=== PATIENT | female | born 1990 | race Caucasian/White ===

== ENCOUNTER 2021-03-22 12:27 | Emergency (ER) | payer MEDICAID ==
[~2021-03-22] VITALS: Ht 162.6 cm; Wt 63.5 kg
[2021-03-22 12:40] VITALS: BP_SYST 116
[2021-03-22 14:21] VITALS: BP_SYST 103
== END 2021-03-22 14:22 | disposition home or self-care (01) ==
LOC: SED 12:27
DX: R07.89 Other chest pain (principal)
CPT/HCPCS: 93005; 99283

== ENCOUNTER 2021-06-30 23:32 | Emergency (ER) | payer MEDICAID ==
[~2021-06-30] VITALS: Ht 162.6 cm; Wt 63.5 kg
[2021-07-01 00:05] VITALS: BP_SYST 161
--- NOTE | 2021-07-01 00:47 | NUR ---
Patient ambulatory to bed 7 for evaluation
--- NOTE | 2021-07-01 01:02 | NUR ---
Patient BIB by family from home. C/O headache x today. Patient reported, had headache today ~ 3 hours [employer], denied injury , trauma or surgery. A/O,X4, nausea, left side head pain, pain rate 7-8/10,
--- NOTE | 2021-07-01 01:21 | NUR ---
ER Dr. Bae at bedside examining patient.
[2021-07-01] MEDS ORDERED: MORPHINE 4 MG INJ. 4 MG/ML VIAL IVP ONE (01:30)
[2021-07-01] MEDS ORDERED: PROMETHAZINE INJ.Non-Formulary 25 MG/ML AMP IVP ONE (01:30)
[2021-07-01] MEDS ORDERED: DEXAMETHASONE SOD PHOSPHATE 10 MG/ML VIAL IVP ONE (01:30)
[2021-07-01] MEDS ORDERED: NACL 0.9% 1,000 ML IV ONE (01:30)
[2021-07-01] MEDS ORDERED: PROCHLORPERAZINE EDISYLATE 10 MG/2 ML VIAL ONE (01:54)
[2021-07-01] MEDS ORDERED: PROCHLORPERAZINE EDISYLATE 10 MG/2 ML VIAL IVP ONE (02:00)
--- NOTE | 2021-07-01 02:26 | NUR ---
Patient pain relief- pain rate 2
--- NOTE | 2021-07-01 03:26 | NUR ---
Returned from radiology, back to [facility].
--- NOTE | 2021-07-01 03:57 | NUR ---
Patient resting quietly. No acute distress noted. Vital signs within normal range.
[2021-07-01] MEDS ORDERED: PHE25 PO (04:47)
[2021-07-01] MEDS ORDERED: NAPR-686 PO (04:47)
[2021-07-01 04:52] VITALS: BP_SYST 108
--- NOTE | 2021-07-01 04:52 | NUR ---
Patient given written and verbal discharge instructions and verbalizes understanding. ER MD discussed with patient the results and treatment provided. Patient in stable condition. ID arm band removed. IV catheter removed intact and dressing applied, no active bleeding. Rx of Naproxen, Phenergan given. Patient educated on pain management and to follow up with PMD. Pain Scale 0/10. Opportunity for questions provided and answered. Medication side effect fact sheet provided.
== END 2021-07-01 04:52 | disposition home or self-care (01) ==
LOC: SED 23:32
DX: G43.909 Migraine, unspecified, not intractable, without status migrainosus (principal); Z20.822 Contact with and (suspected) exposure to COVID-19
CPT/HCPCS: 36415; 70450; 76376; 81025; 87426; 96361; 96374; 96375; 99285; J0780; J1100; J2270; J7030; J2550

== ENCOUNTER 2022-04-28 20:32 | Emergency (ER) | payer MEDICAID ==
[~2022-04-28] VITALS: Ht 162.6 cm; Wt 63.5 kg
[~2022-04-28 20:32] MED LIST: NAPR-686 PO; PHE25 PO
[2022-04-28 21:29] VITALS: BP_SYST 112
--- NOTE | 2022-04-28 21:35 | NUR ---
PT FROM HOME WITH C/O BURING WITH URINATION AND FREQUENCY. PAIN 03/05. DENIES N/V. PT AMBULATORY AND FOLLOWING COMMANDS.
--- NOTE | 2022-04-28 21:36 | NUR ---
PT PLACED IN LOBBY.
--- NOTE | 2022-04-28 21:42 | NUR ---
WITH PATIENT IN TRIAGE ROOM.
[2022-04-28] MEDS ORDERED: NITR-85 PO ×3 (21:47→23:08)
[2022-04-28] MEDS ORDERED: PHEN-726 PO ×3 (21:47→23:08)
[2022-04-28 22:34] VITALS: BP_SYST 128
--- NOTE | 2022-04-28 22:34 | NUR ---
Patient given written and verbal discharge instructions and verbalizes understanding. ER MD discussed with patient the results and treatment provided. Patient in stable condition. ID arm band removed. Rx of Macrobid and Pyridium given. Patient educated on pain management and to follow up with PMD. Pain Scale 0/10. Opportunity for questions provided and answered. Medication side effect fact sheet provided.
== END 2022-04-28 22:34 | disposition home or self-care (01) ==
LOC: SED 20:32
DX: N39.0 Urinary tract infection, site not specified (principal); R35.0 Frequency of micturition; R30.0 Dysuria; Z79.899 Other long term (current) drug therapy
CPT/HCPCS: 81025; 99283

== ENCOUNTER 2024-03-01 22:43 | Emergency (ER) | payer MEDICAID ==
[~2024-03-01] VITALS: Ht 162.6 cm; Wt 63.5 kg
[~2024-03-01 22:43] MED LIST changes: +NITR-85 PO; +PHEN-726 PO
[2024-03-01 22:55] VITALS: BP_SYST 141; PULSE 91; RESP 20; TEMP 97.6; O2SAT 98
[2024-03-01 23:20] VITALS: BP_SYST 118; PULSE 88; RESP 18; TEMP 98.1; O2SAT 98
[2024-03-01] MEDS: KETOROLAC TROMETHAMINE 60 MG/2 ML VIAL IM ONE (23:21)
[2024-03-01 23:31] LABS: BILIRUBIN,URINE NEGATIVE (NEGATIVE); CLARITY/URINE CLEAR (CLEAR); COLOR,URINE YELLOW (YELLOW); GLUCOSE,URINE NEGATIVE (NEGATIVE); KETONES,URINE TRACE (NEGATIVE); LEUKOCYTE ESTERASE ,URINE NEGATIVE (NEGATIVE); NITRITE, URINE NEGATIVE (NEGATIVE); PROTEIN URINE NEGATIVE (NEGATIVE); UROBILINOGEN,URINE 0.2 (0.2-1.0)
[2024-03-01 23:40] LABS: BLOOD, URINE TRACE (NEGATIVE)
[2024-03-01 23:41] LABS: BACTERIA,URINE RARE /HPF (None Seen); RBC,URINE 0-3 /HPF (0-3); WBC,URINE 0-3 /HPF (0-3)
[2024-03-01] MEDS ORDERED: NAPR-1172 PO (23:57)
== END 2024-03-02 00:09 | disposition home or self-care (01) ==
LOC: SED 22:43
DX: G44.209 Tension-type headache, unspecified, not intractable (principal); M79.671 Pain in right foot; E78.5 Hyperlipidemia, unspecified; Z79.899 Other long term (current) drug therapy; Z79.2 Long term (current) use of antibiotics
CPT/HCPCS: 99283; 81001; 96372; J1885; 81000; 81015

== ENCOUNTER 2024-06-25 15:07 | Emergency (ER) | payer MEDICAID ==
[~2024-06-25] VITALS: Ht 162.6 cm; Wt 63.5 kg
[~2024-06-25 15:07] MED LIST changes: +NAPR-1172 PO
[2024-06-25 15:20] VITALS: BP_SYST 121; PULSE 114; RESP 18; TEMP 98.2; O2SAT 100
[2024-06-25] MEDS: ONDANSETRON 4 MG ODT TAB PO ONE (16:11)
[2024-06-25 16:27] LABS: BASOPHILS % (AUTO) 0.4 % (0.0-2.0); EOSINOPHILS % (AUTO) 0.1 % (0.0-4.0); HEMATOCRIT 39.9 % (36-48); HEMOGLOBIN 13.7 g/dL (12.0-16.0); LYMPHOCYTES # (AUTO) 1.6 K/uL (1.0-5.5); LYMPHOCYTES % (AUTO) 18.9 % (20.5-51.5); MEAN CORPUSCULAR HEMOGLOBIN 31 pg (27-31); MEAN CORPUSCULAR HGB CONC 34 % (32-36); MEAN CORPUSCULAR VOLUME 90 fL (79.0-98.0); MONOCYTES # (AUTO) 0.4 K/uL (0.0-1.0); MONOCYTES % (AUTO) 4.7 % (1.7-9.3); NEUTROPHILS # (AUTO) 6.2 K/uL (1.8-7.7); NEUTROPHILS % (AUTO) 75.9 % (40.0-70.0); PLATELET COUNT (AUTO) 249 K/uL (130-430); RED BLOOD CELL COUNT(AUTO) 4.41 MIL/uL (4.2-6.2); RED CELL DISTRIBUTION WIDTH 12.6 % (9.0-15.0); WHITE BLOOD COUNT (AUTO) 8.2 K/uL (4.8-10.8)
[2024-06-25 16:46] LABS: ALANINE AMINOTRANSFERASE 14 U/L (12-78); ALBUMIN 3.7 g/dL (3.4-4.8); AMYLASE 70 U/L (0-100); ANION GAP 7 (5-15); ASPARTATE AMINOTRANSFERASE 13 U/L (10-37); BILIRUBIN,DIRECT 0.1 mg/dL (0.0-0.3); CALCIUM 9.1 mg/dL (8.4-11.0); CARBON DIOXIDE 30 mmol/L (23-29); CHLORIDE 102 mmol/L (98-107); CREATININE 0.59 mg/dL (0.55-1.30); GFR AFRICAN AMERICAN 148 mL/min (>90); GFR NON AFRICAN-AMERICAN 123 mL/min (>90); GLUCOSE 93 mg/dL (74-106); LIPASE 26 U/L (16-77); POTASSIUM 3.5 mmol/L (3.5-5.1); SODIUM SERUM 139 mmol/L (136-145); TOTAL BILIRUBIN 0.3 mg/dL (0.0-1.0); TOTAL PROTEIN, SERUM 7.4 g/dL (6.4-8.3); UREA NITROGEN, BLOOD 7 mg/dL (8-21)
[2024-06-25 17:13] LABS: ACETONE, SERUM NEGATIVE (NEGATIVE)
[2024-06-25] MEDS: NACL 0.9% 1,000 ML IV ONE (17:23)
[2024-06-25 18:22] VITALS: BP_SYST 121; PULSE 112; RESP 18; TEMP 98.2; O2SAT 100
== END 2024-06-25 18:22 | disposition home or self-care (01) ==
LOC: SED 15:07
DX: R11.2 Nausea with vomiting, unspecified (principal); R19.7 Diarrhea, unspecified; R25.2 Cramp and spasm; Z79.899 Other long term (current) drug therapy; Z79.2 Long term (current) use of antibiotics
CPT/HCPCS: 99283; 96360; 80076; 80048; 82009; 82150; 83690; 85025; 85610; 85730; 36415; 83605; Q0162; J7030

== ENCOUNTER 2024-07-25 18:11 | Emergency (ER) | payer MEDICAID ==
[~2024-07-25] VITALS: Ht 162.6 cm; Wt 63.5 kg
[2024-07-25 18:15] VITALS: BP_SYST 134; PULSE 100; RESP 16; TEMP 97.6; O2SAT 98
[2024-07-25 18:51] LABS: BILIRUBIN,URINE NEGATIVE (NEGATIVE); BLOOD, URINE 1+ (NEGATIVE); CLARITY/URINE CLEAR (CLEAR); COLOR,URINE YELLOW (YELLOW); GLUCOSE,URINE NEGATIVE (NEGATIVE); KETONES,URINE NEGATIVE (NEGATIVE); LEUKOCYTE ESTERASE ,URINE TRACE (NEGATIVE); NITRITE, URINE NEGATIVE (NEGATIVE); PH,URINE 5.5 (5.0-8.0); PROTEIN URINE NEGATIVE (NEGATIVE); UROBILINOGEN,URINE 0.2 (0.2-1.0)
[2024-07-25 19:01] LABS: BACTERIA,URINE RARE /HPF (None Seen)
[2024-07-25 19:41] VITALS: BP_SYST 111; PULSE 85; RESP 16; TEMP 98.2; O2SAT 99
[2024-07-25] MEDS ORDERED: NITR-85 PO (19:56)
== END 2024-07-25 20:10 | disposition home or self-care (01) ==
LOC: SED 18:11
DX: N39.0 Urinary tract infection, site not specified (principal)
CPT/HCPCS: 81000; 81001; 81015; 87086; 87186; 99283